=== PATIENT | female | born 1950 | race Caucasian/White ===

== ENCOUNTER → 2020-07-20 | Outpatient (CLI) | payer OTHER ==
[~2020-07-20] MED LIST: ASPIRIN81 MG PO; BENICAR20 MG PO; CALCIUM 500 +1 EACH PO; COZAAR25 MG PO; CRESTOR10 MG PO; GLUCOPHAGE1000 MG PO; INVOKANA300 MG PO; JANUVIA100 MG PO; LANTUS100 UNIT/1 SC; LIPITOR TAB 1010 MG PO; NEURONTIN 300300 MG PO; PROTONIX40 MG PO; REGLAN10 MG PO; SINGULAIR10 MG PO; TENORMIN 50 MG50 MG PO; TRICOR145 MG PO; ULTRAM50 MG PO; VITAMIN D32000 UNI1 PO; XARELTO10 MG PO
== END ==
LOC: ECHO 13:00
DX: I11.9 Hypertensive heart disease without heart failure (principal); I26.99 Other pulmonary embolism without acute cor pulmonale; E11.9 Type 2 diabetes mellitus without complications
CPT/HCPCS: ECHO; 93306

== ENCOUNTER → 2021-07-15 | Outpatient (CLI) | payer OTHER | LOC: KOH-I 15:45 | DX: M25.561 Pain in right knee (principal); M17.11 Unilateral primary osteoarthritis, right knee | CPT/HCPCS: 73562 ==